=== PATIENT | female | born 1975 | race Caucasian/White ===

== ENCOUNTER 2021-10-21 11:42 | Emergency (ER) | payer OTHER ==
[~2021-10-21] VITALS: Ht 167.6 cm; Wt 95.3 kg
[2021-10-21] MEDS ORDERED: CASIRIVIMAB/IMDEVIMAB 10 ML in SODIUM CHLORIDE 0.9% 100 ML IV ONE (12:15)
[2021-10-21] MEDS ORDERED: ACETAMINOPHEN 325 MG TAB PO ONE (12:25)
== END 2021-10-21 13:08 | disposition home or self-care (01) ==
LOC: ER 11:52
DX: U07.1 COVID-19 (principal)
CPT/HCPCS: 99283; J7050